=== PATIENT | male | born 1965 | race Caucasian/White ===

== ENCOUNTER 2018-01-29 10:53 | Emergency (ER) | payer BC ==
[~2018-01-29] VITALS: Ht 180.3 cm; Wt 92.5 kg
[~2018-01-29 10:53] MED LIST: ATARAX25 MG PO; ELIMITE 5%60 GM PO; LIPITOR80 MG PO; NIASPAN; NIASPAN500 MG PO; WYMOX500 MG PO; ZETIA10 MG PO
[2018-01-29] MEDS ORDERED: KEFLEX500 M1 PO (11:05)
[2018-01-29] MEDS ORDERED: SILVADENE,SSD C50 GM T (11:05)
== END 2018-01-29 11:44 | disposition home or self-care (01) ==
LOC: ED 10:53
DX: T20.112A Burn of first degree of left ear [any part, except ear drum], initial encounter (principal); Z79.899 Other long term (current) drug therapy; W22.8XXA Striking against or struck by other objects, initial encounter; Y93.89 Activity, other specified; Y92.89 Other specified places as the place of occurrence of the external cause; Y99.8 Other external cause status

== ENCOUNTER → 2020-02-14 | Outpatient (CLI) | payer BC ==
[~2020-02-14] MED LIST changes: +KEFLEX500 M1 PO; +SILVADENE,SSD C50 GM T
== END | disposition home or self-care (01) ==
LOC: COVID19 11:44
PROVIDERS: ATTEND Internal Medicine
DX: Z20.828 Contact with and (suspected) exposure to other viral communicable diseases (principal)